=== PATIENT | male | born 1955 | race African-American/Black ===

== ENCOUNTER 2019-12-11 06:10 | Day surgery (SDC) | payer OTHER ==
[2019-12-08 15:21] VITALS: BMI 29.0
[2019-12-11] MEDS ORDERED: MIDAZOLAM HCL 2 MG/2 ML SINGLE DOSE VIAL ONE ×2 (08:03)
[2019-12-11 08:42] VITALS: TEMP 97.9
--- NOTE | 2019-12-11 09:11 | OP ---
Operative Note - Note: Operative Date: 12/11/19 Pre-Operative Diagnosis: Left renal stone Operation: Left ESWL Findings: 7 mm lower pole Left renal stone Post-Operative Diagnosis: Same as Pre-op Surgeon: Dejuan Norman Anesthesia: Fractional Estimated Blood Loss (mls): 0 Operative Report Dictated: Yes
[2019-12-11 11:19] VITALS: BP 117/60; PULSE 68
--- NOTE | 2019-12-11 21:59 | OP ---
DATE OF OPERATION: 12/11/2019 PREOPERATIVE DIAGNOSIS: Left renal stone. POSTOPERATIVE DIAGNOSIS: Left renal stone. PROCEDURE: Left extracorporeal shock wave lithotripsy. ATTENDING: Dejaun Tavera MD ANESTHESIA: Fractional. DESCRIPTION OF OPERATION: Patient was brought in the operating room, placed in a supine position on the operating room table. Ultrasonography and fluoroscopy were performed. A 7-mm left lower pole stone was identified. At this point, anesthesia and preoperative antibiotics were then administered. With this accomplished, 2500 impulses at 18 joules of power were administered to the stone. Excellent fragmentation of the stone was noted under realtime ultrasonography and fluoroscopy. There were no complications noted. The patient tolerated the procedure very well. Marissa [id number]
== END 2019-12-11 10:30 | disposition home or self-care (01) ==
LOC: JASU-SURG 06:10
PROVIDERS: ATTEND Urology
PROC: 0TF4XZZ Fragmentation in Left Kidney Pelvis, External Approach (ICD-10-PCS; principal; 2019-12-11 08:00)
DX: N20.0 Calculus of kidney (principal); E11.9 Type 2 diabetes mellitus without complications; I10 Essential (primary) hypertension
CPT/HCPCS: 82962

== ENCOUNTER 2022-12-21 05:19 | Day surgery (SDC) | payer OTHER ==
[2022-12-16 11:11] VITALS: BMI 29.0
[2022-12-21 09:13] VITALS: RESP 18
[2022-12-21] MEDS ORDERED: MIDAZOLAM HCL 2 MG/2 ML SINGLE DOSE VIAL ONE (11:08)
[2022-12-21] MEDS ORDERED: ONDANSETRON 4 MG/2 ML VIAL ONE (11:08)
[2022-12-21 13:22] VITALS: BP 130/69; PULSE 74; TEMP 97.3
== END 2022-12-21 13:15 | disposition home or self-care (01) ==
LOC: JASU-SURG 05:19
PROVIDERS: ATTEND Urology
PROC: 0TF3XZZ Fragmentation in Right Kidney Pelvis, External Approach (ICD-10-PCS; principal; 2022-12-21 10:30)
DX: N20.0 Calculus of kidney (principal)
CPT/HCPCS: 82962